=== PATIENT | female | born 1970 | race Caucasian/White ===

== ENCOUNTER 2021-10-26 09:31 | Outpatient (CLI) | payer OTHER, SELFPAY ==
--- NOTE | 2021-10-26 09:58 | ECHO_ITS ---
Patient Info Name: Shabana Plummer Age: 51 years : 1970 Gender: Female Ht: 66 in Wt: 225 lbs BSA: 2.22 m2 HR: 68 bpm BP: 141 / 97 mmHg Technical Quality: Fair Exam Date: 10/26/2021 10:25 AM Exam Location: [facility] Pulmonary Patient Status: Outpatient Admit Date: 10/26/2021 Staff Ordering Physician: Dennis Guevara DO Clinical Product Manager: Kimberley Anderson RDCS Attending Provider: Dennis Guevara DO Referring Physician: Ismael VERDE; Exam Type: CA echo doppler color flow Study Info Indications R06.00 - Dyspnea, unspecified Complete two-dimensional, color flow and Doppler transthoracic echocardiogram is performed. Summary 1. Complete two-dimensional, color flow and Doppler transthoracic echocardiogram is performed. 2. Left ventricular chamber dimension is normal. 3. Left ventricular systolic function is normal, estimated at 60-65%. 4. There is mildly increased left ventricular wall thickness. 5. The left ventricular diastolic function is grade I diastolic dysfunction. 6. E/e' 14 is mildly elevated. 7. Global longitudinal strain is mildly abnormal at -16.4%. 8. Left atrial chamber dimension is moderately enlarged. 9. The mitral valve has mildly calcified leaflets. 10. There is mild mitral valve regurgitation. 11. There is trace tricuspid valve regurgitation. 12. No pulmonary hypertension, estimated pulmonary arterial systolic pressure is 32 mmHg. Left Ventricle E/e' 14 is mildly elevated. Global longitudinal strain is mildly abnormal at -16.4%. Left ventricular chamber dimension is normal. Left ventricular systolic function is normal, estimated at 60-65%. There is mildly increased left ventricular wall thickness. The left ventricular diastolic function is grade I diastolic dysfunction. Right Ventricle Right ventricular chamber dimension is normal. Right ventricular systolic function is normal. Left Atria Left atrial chamber dimension is moderately enlarged. Right Atria Right atrial chamber dimension is normal. Aortic Valve The aortic valve is trileaflet. There is no aortic valve stenosis. There is no aortic valve regurgitation. Pulmonic Valve There is no pulmonic regurgitation. Mitral Valve The mitral valve has mildly calcified leaflets. There is no mitral valve stenosis. There is mild mitral valve regurgitation. Tricuspid Valve There is trace tricuspid valve regurgitation. No pulmonary hypertension, estimated pulmonary arterial systolic pressure is 32 mmHg. Pericardium/Pleural There is no pericardial effusion. Inferior Vena Cava Normal inferior vena cava with >50% collapse upon inspiration consistent with normal right atrial pressure, 5 mmHg. Aorta The aortic root size at the sinus of Valsalva is normal. Left Ventricular Outflow Tract Name Value Normal LVOT 2D LVOT Diameter 2.0 cm LVOT Doppler LVOT Peak Gradient 8 mmHg LVOT Mean Gradient 4 mmHg LVOT VTI 29 cm LVOT VTI/AV VTI Ratio 0.8 LVOT Stroke Volume 92 ml
== END 2021-10-26 09:32 | disposition home or self-care (01) ==
PROVIDERS: Visit Provider Internal Medicine Cardiovascular Disease
DX: R06.00 Dyspnea, unspecified (principal); I34.0 Nonrheumatic mitral (valve) insufficiency
CPT/HCPCS: 93306

== ENCOUNTER 2021-11-17 08:27 | Outpatient (CLI) | payer OTHER, SELFPAY ==
--- NOTE | 2021-11-17 08:31 | EST_ITS ---
Patient Info Name: Shabana Plummer Age: 51 years : 1970 Gender: Female Ht: 65 in Wt: 225 lbs BSA: 2.21 m2 HR: 69 bpm BP: 163 / 104 mmHg Heart Rhythm: Right Bundle Branch Block Exam Date: 11/17/2021 8:45 AM Exam Location: [facility] Stress Patient Status: Outpatient Admit Date: 11/17/2021 Staff Ordering Physician: Dennis Guevara DO Attending Provider: Dennis Guevara DO Exercise Technologist: Ale Sanz CT Exercise Physician: Dennis Guevara DO Exam Type: CA stress test treadmill Study Info Indications R07.9 - Chest pain, unspecified A regadenoson stress test was performed. Summary 1. 1. Negative Nura exercise stress test for ischemic ST changes by ECG criteria. 2. 2. Reduced functional capacity, achieving 8.9 METs of workload. 3. 3. Baseline hypertension with hypertensive response to exercise. 4. 4. Appropriate HR response to exercise. 5. 5. Appropriate HR recovery at 1 minute post exercise. 6. 6. No imaging with stress testing. 7. 7. Patient informed of the above results. Protocol: Nura Stress ECG Details Stage: REST Duration (min): 4 min : 14 sec Speed (mph): 0.0 Grade (%): 0 HR (bpm): 69 SBP (mmHg): 163 DBP (mmHg): 104 METS: --- Stage: REST Duration (min): 4 min : 40 sec Speed (mph): 0.0 Grade (%): 0 HR (bpm): 80 SBP (mmHg): 163 DBP (mmHg): 104 METS: --- Stage: STAGE 1 Duration (min): 1 min : 0 sec Speed (mph): 1.7 Grade (%): 10 HR (bpm): 103 SBP (mmHg): 163 DBP (mmHg): 104 METS: --- Stage: STAGE 1 Duration (min): 2 min : 0 sec Speed (mph): 1.7 Grade (%): 10 HR (bpm): 110 SBP (mmHg): 163 DBP (mmHg): 104 METS: --- Stage: STAGE 1 Duration (min): 3 min : 0 sec Speed (mph): 1.7 Grade (%): 10 HR (bpm): 112 SBP (mmHg): 209 DBP (mmHg): 93 METS: --- Stage: STAGE 2 Duration (min): 1 min : 0 sec Speed (mph): 2.5 Grade (%): 12 HR (bpm): 124 SBP (mmHg): 209 DBP (mmHg): 93 METS: --- Stage: STAGE 2 Duration (min): 2 min : 0 sec Speed (mph): 2.5 Grade (%): 12 HR (bpm): 130 SBP (mmHg): 209 DBP (mmHg): 93 METS: --- Stage: STAGE 2 Duration (min): 3 min : 0 sec Speed (mph): 2.5 Grade (%): 12 HR (bpm): 136 SBP (mmHg): 209 DBP (mmHg): 93 METS: --- Stage: STAGE 3 Duration (min): 1 min : 0 sec Speed (mph): 3.4 Grade (%): 14 HR (bpm): 156 SBP (mmHg): 231 DBP (mmHg): 115 METS: --- Stage: STAGE 3 Duration (min): 1 min : 0 sec Speed (mph): 3.4 Grade (%): 14 HR (bpm): 156 SBP (mmHg): 231 DBP (mmHg): 115 METS: --- Stage: RECOVERY Duration (min): 0 min : 59 sec Speed (mph): 0.0 Grade (%): 0 HR (bpm): 130 SBP (mmHg): 231 DBP (mmHg): 115 METS: --- Stage: RECOVERY Duration (min): 1 min : 59 sec Speed (mph): 0.0 Grade (%): 0 HR (bpm): 115
== END 2021-11-17 08:28 | disposition home or self-care (01) ==
LOC: ANHCARD 08:28
PROVIDERS: Visit Provider Internal Medicine Cardiovascular Disease
DX: R07.89 Other chest pain (principal); I45.10 Unspecified right bundle-branch block
CPT/HCPCS: 93017

== ENCOUNTER 2023-07-12 08:34 | Outpatient (CLI) | payer OTHER, SELFPAY ==
--- NOTE | 2023-08-05 12:24 | WPDHOMESLEEP ---
Sleep Study - Home Unattended Date of Study: 07/12/23 Ordering Provider: Dennis Guevara DO Interpreting Provider: Brandy Ch MD Home Sleep Study Type: Watch PAT Height: 1.68 m Weight: 108.862 kg Body Mass Index: 38.7 Neck Circumference (inches): 15.5 [place]: 13 Reason for Sleep Study Hypersomnolence Sleep History Shabana Plummer is a 53-year-old woman with hypertension who has excessive daytime sleepiness. There is a family history of sleep conditions in her sons, her aunt and uncle's. She wakes up during the night. She frequently awakens from sleep short of breath. She frequently wakes at night with heartburn, belching or coughing.??She constant snores and it is always loud enough that others complain. She frequently has trouble sleeping when she has a cold. She constantly wakes up gasping for breath during the night. She constantly has breathing problems at night. She rarely sweats excessively at night. She never notices her heart pounding or beating irregularly during the night. She frequently falls asleep during the day. She occasionally falls asleep involuntarily, rarely falls asleep while driving. She never experiences loss of muscle tone with strong emotion. She never feels paralyzed on waking or falling asleep. She never experiences vivid dreams upon waking or falling asleep. She never feels afraid of going to sleep. She never has nightmares. She never recalls her dreams. She rarely has thoughts racing through her mind. She occasionally feels sad or depressed. She rarely feels anxiety. She never notices parts of her body jerk. She never kicks during the night. She never feels crawling or aching feelings in her legs. She never feels leg pain at night. She never has morning jaw pain, and never grinds her teeth at night. She never feels bothered by pain during the day, is never awakened by pain during the night. She occasionally wakes up feeling stiff in the morning, never wakes feeling sore or achy in the morning. She never awakens with pain in her neck, spine, or joints. She has fatigue and headaches. She reports weight gain during the last year. Normal bedtime is 9:30 p.m., falling asleep pretty quickly waking 1-2 times at night to go to the bathroom. Her normal wake up time is 5:30 a.m.. On weekends, bedtime is 10:00 p.m.. Her wake time is 8:00 a.m.. She does not stay in bed long after waking. She estimates getting between 6 and 7 hours of sleep most nights. She does wake at night to provide help to a 4-year-old child. She takes naps in the afternoon or evening. A short nap lasting 10-15 minutes may be refreshing. She is usually drowsy for 2 hours after waking. She feels better in the morning compared to other times of day. Habits:??Tobacco: Never smoker Caffeine: None. Alcohol: None. Recreational substances: none [facility] Past Medical History Medical History (Updated 08/06/23 @ 10:02 by Brandy Ch MD) Asthma Chest pain Dyspnea Edema Essential hypertension MARILYN (obstructive sleep apnea) Tricuspid regurgitation Vertigo Surgical History Surgical History (Updated 08/06/23 @ 10:03 by Brandy Ch MD) S/P partial hysterectomy Status post tonsillectomy Social History Social History (Updated 07/02/23 @ 10:17 by Betty Alvarez CMA) Smoking status: Never smoker Alcohol intake: never Do You Feel Safe in your Home?: Yes Lack of Transportation: No Lack of Food: Never True Current Housing: I Have Housing Concerned About Future Housing: No Difficulty Paying Gas/Electric Bills: No Difficulty Paying for Meds: No Currently Unemployed: No Education: High School Diploma/GED Difficulty w/ Childcare or Family Care: No Medications Home Medications Medication Instructions Recorded Confirmed Type omega 7-aso-xwg-fish oil 1,000 mg 1 cap PO DAILY 11/27/22 07/02/23 History (120 mg-180 mg) capsule (Fish Oil) spironolactone 25 mg tablet 25 mg PO DAILY
[2023-08-06 10:06] VITALS: BMI 38.7
== END 2023-07-13 08:30 | disposition home or self-care (01) ==
LOC: ANHCSM 08:36
PROVIDERS: Visit Provider Internal Medicine Cardiovascular Disease
DX: G47.10 Hypersomnia, unspecified (principal); G47.33 Obstructive sleep apnea (adult) (pediatric)
CPT/HCPCS: 95800

== ENCOUNTER 2024-07-23 09:48 | Outpatient (CLI) | payer OTHER, SELFPAY ==
--- OUTSIDE RECORDS SUMMARY | 2024-07-23 11:56 | XMS_ITS | Patient Health Record ---
Author Organization [facility] Address [address] [place] [id number] Care Team Providers Care Planner Internship Name Role Phone Rachid Reyez DO Primary Care Provider Unavail able Judah Álvarez Unavailable [phone] REASON FOR REFERRAL No Information MEDICATIONS Medication SIG (Take, Route, Frequency, Duration) Notes Start Date End Date Status Ventolin HFA 108 (90 Base) MCG/ACT 2 puffs as needed Inhalation every 6 hrs Active Spironolactone 25 MG 1 tablet with food Orally Twice a day for 90 days Active Advair Diskus 250-50 MCG/DOSE 1 puff Inhalation Twice a day Active Metoprolol Succinate ER 50 MG 1 tablet Orally Once a day for 30 day(s) Active SOCIAL HISTORY Tobacco Use: Social History Observation Description Date Details (start date - stop date) Never Smoker NA - NA Sex Assigned At : Social History Observation Description Sex Assigned At Unknown Tobacco Use/Smoking Question Answer Notes You are a nonsmoker PROBLEMS Problem Type ICD Code Onset Dates Problem Status W/U Status Risk SNOMED Code Notes Problem Hypokalemia (E87.6) Active confirmed Hypokalemia (89010218) Problem Essential (primary) hypertension (I10) Active confirmed Essential hypertension (54138360) PLAN OF TREATMENT Future Test Test Name Order Date RENAL PANEL 06/09/2020 Insurance Providers Payer Name Payer Address Payer Phone Subscriber Number Group Number Insured Name Patient Relationship to Insured Coverage Start Date Coverage End Date [facility] [employer] [address] [address] [place] [address] [phone] [id number] Shabana Whipple Self - patient is the insured MEDICAL (GENERAL) HISTORY Medical History History ICD Code Hypokalemia Hypertension Carpal Tunnel Syndrome Chest Pain GERD Sinusitis [id number] U/S--No sonographic evide nce of renal pathology Surgical History Surgery Date(Month/Year) Hysterectomy Tubal Ligation Hospitalization History Reason Date(Month/Year) For Above Surgery
--- NOTE | 2024-08-14 12:00 | WPDSLEEPSTUD ---
Sleep Study Date of Study: 07/23/24 Ordering Provider: Charles Bhatia APRN Interpreting Physician: Brandy Ch MD Sleep Study Type: Polysomnogram Height: 1.68 m Weight: 111.13 kg Body Mass Index: 39.5 Neck Circumference (inches): 16.25 [place]: 5 Reason for Sleep Study Known obstructive sleep apnea, previously tested 07/12/2023, now presents for a polysomnogram with a mandibular advancement device titration Sleep History Shabana Plummer is a 54-year-old woman with hypertension who has excessive daytime sleepiness. There is a family history of sleep conditions in her sons, her aunt and uncle's. She wakes up during the night. She frequently awakens from sleep short of breath. She frequently wakes at night with heartburn, belching or coughing.??She constant snores and it is always loud enough that others complain. She frequently has trouble sleeping when she has a cold. She constantly wakes up gasping for breath during the night. She constantly has breathing problems at night. She rarely sweats excessively at night. She never notices her heart pounding or beating irregularly during the night. She frequently falls asleep during the day. She occasionally falls asleep involuntarily, rarely falls asleep while driving. She never experiences loss of muscle tone with strong emotion. She never feels paralyzed on waking or falling asleep. She never experiences vivid dreams upon waking or falling asleep. She never feels afraid of going to sleep. She never has nightmares. She never recalls her dreams. She rarely has thoughts racing through her mind. She occasionally feels sad or depressed. She rarely feels anxiety. She never notices parts of her body jerk. She never kicks during the night. She never feels crawling or aching feelings in her legs. She never feels leg pain at night. She never has morning jaw pain, and never grinds her teeth at night. She never feels bothered by pain during the day, is never awakened by pain during the night. She occasionally wakes up feeling stiff in the morning, never wakes feeling sore or achy in the morning. She never awakens with pain in her neck, spine, or joints. She has fatigue and headaches. She reports weight gain during the last year. Normal bedtime is 9:30 p.m., falling asleep pretty quickly waking 1-2 times at night to go to the bathroom. Her normal wake up time is 5:30 a.m.. On weekends, bedtime is 10:00 p.m.. Her wake time is 8:00 a.m.. She does not stay in bed long after waking. She estimates getting between 6 and 7 hours of sleep most nights. She does wake at night to provide help to a 4-year-old child. She takes naps in the afternoon or evening. A short nap lasting 10-15 minutes may be refreshing. She is usually drowsy for 2 hours after waking. She feels better in the morning compared to other times of day. Habits:??Tobacco: Never smoker Caffeine: None. Alcohol: None. Recreational substances: none PMFSH Past Medical History Medical History Asthma MARILYN (obstructive sleep apnea) Dyspnea Vertigo Edema Chest pain Tricuspid regurgitation Essential hypertension Surgical History Surgical History Status post tonsillectomy S/P partial hysterectomy Social History Social History Smoking status: Never smoker Alcohol intake: never Do You Feel Safe in your Home?: Yes Lack of Transportation: No Lack of Food: Never True Current Housing: I Have Housing Concerned About Future Housing: No Difficulty Paying Gas/Electric Bills: No Difficulty Paying for Meds: No Currently Unemployed: No Education: High School Diploma/GED Difficulty w/ Childcare or Family Care: No Medications Home Medications ?Medication ?Instructions ?Recorded ?Confirmed ?Type omega 1-npw-vsk-fish oil 1,000 mg 1 cap PO DAILY 11/27/22 06/09/24 History (120 mg-180 mg) capsule (Fish Oil) pravastatin 10 mg tablet See Rx Instructions .Route 07/20/23 06/09/24 Rx .COMPLEX #90 tabs spironolactone 50 mg tablet 50 mg PO DAILY #90 tabs 08/16/23 06/09/24 Rx albuterol sulfate 90 mcg/actuation 1 puff inhalation Q4H PRN 09/07/23 06/09/24 History aerosol inhaler fluticasone 250 mcg-salmeterol 50 1 inh inhalation BID 09/07/23 06/09/24 History mcg/dose blistr powdr for inhalation (Advair Diskus) metoprolol succinate 50 mg 50 mg PO DAILY 03/07/24 06/09/24 History tablet,extended release 24 hr Assessment and Plan Assessment and Plan (1) Obstructive sleep apnea: Code(s): G47.33 - Obstructive sleep apnea (adult) (pediatric) Status: Acute Assessment and Plan: This basic nocturnal polysomnogram 07/23/2024 with titration of a MAD, mandibular advancement device, shows Data The data obtained during this sleep study is adequate for interpretation. Certification This sleep study has been reviewed by a board certified sleep medicine physician.
[2024-08-14 12:02] VITALS: BMI 39.5
== END 2024-07-24 06:34 | disposition home or self-care (01) ==
PROVIDERS: Visit Provider Nurse Practitioner Family
DX: G47.33 Obstructive sleep apnea (adult) (pediatric) (principal)
CPT/HCPCS: 95810

== ENCOUNTER 2024-09-11 09:52 | Outpatient (CLI) | payer OTHER, SELFPAY ==
--- NOTE | ~2024-09-11 | XR_ITS ---
Clinical Indication: Idiopathic sleep obstruction PA and lateral views of the chest: Comparison: None Findings: The lungs are clear, without evidence of focal consolidation or pleural effusion. Cardiome diastinal silhouette is within normal limits. Bones and soft tissues are unremarkable. Impression: Normal chest. Reviewed, dictated and finalized at location . Impression: Normal chest.
--- OUTSIDE RECORDS SUMMARY | 2024-09-11 10:10 | XMS_ITS | Patient Health Record ---
Author Organization [facility] Address [address] [place] [id number] Care Team Providers Care Partition Making Machine Operator Name Role Phone Rachid Reyez DO Primary Care Provider Unavail able Judah Álvarez Unavailable [phone] REASON FOR REFERRAL No Information MEDICATIONS Medication [...] Notes Problem Hypokalemia (E87.6) Active confirmed Hypokalemia (45354354) Problem Essential (primary) hypertension (I10) Active confirmed Essential hypertension (22678642) PLAN OF TREATMENT Future Test Test Name Order Date RENAL PANEL 06/09/2020 Insurance Providers Payer Name Payer Address Payer Phone Subscriber Number Group Number Insured Name Patient Relationship to Insured Coverage Start Date Coverage End Date [facility] [employer] [address] [address] [place] [address] [phone] [id number] Shabana Whipple Self - patient is the insured MEDICAL (GENERAL) HISTORY Medical History History ICD Code Hypokalemia Hypertension Carpal Tunnel Syndrome Chest Pain GERD Sinusitis [id number] U/S--No sonographic evide nce of renal pathology Surgical History Surgery Date(Month/Year) Hysterectomy Tubal Ligation Hospitalization History Reason Date(Month/Year) For Above Surgery
--- NOTE | 2024-09-11 14:14 | WPDPFTINT ---
PFT Procedure Performed PFT Procedure Performed Spirometry with Pre/Post Bronchodilator Plethysmography (Lung Vol) Diffusing Cap (DLCO) Flow Vol Loop PFT Interpretation This is a pulmonary function test with pre and post-bronchodilator spirometry, plethysmography and diffusing capacity. The test was performed and results interpreted in accordance with the 2019 and 2005 ATS/ERS Task Force guidelines respectively using the Global Lung Function Initiative-2012 reference equations. Patient demonstrated good effort and cooperation. Reproducibility criteria were met. The quality of the pre bronchodilator spirometry maneuver was Grade A and post bronchodilator spirometry maneuver was Grade A. Findings: Spirometry: The contour the inspiratory and expiratory flow tracing are normal. The pre bronchodilator FVC is 3.23 L, 91% predicted. The pre bronchodilator FEV1 is 2.36 L, 85% predicted. The pre bronchodilator FEV1: FVC ratio 73%. The post bronchodilator FVC is 3.10 L, representing a 4% decrease. The post bronchodilator FEV1 is 2.39 L, representing a 1% increase. The post bronchodilator FEV1: FVC ratio 77%. Plethysmography: The total lung capacity is 4.53 L, 84% predicted. The functional residual capacity is 1.71 L, 56% predicted. The residual volume is 1.30 L, 65% predicted. Diffusing capacity: The diffusing capacity unadjusted for hemoglobin and carboxyhemoglobin is 26.1, 114% predicted. The diffusing capacity adjusted for alveolar volume is 5.96, 135% predicted. Impression: The spirometry is normal without evidence of an obstructive abnormality. There is no significant improvement after inhaling a single dose of albuterol. The total lung capacity and residual volume are normal with a decreased functional residual capacity. This is an abnormal but nonspecific lung volume pattern. The diffusing capacity is normal. There are no prior studies for comparison
== END 2024-09-11 09:53 | disposition home or self-care (01) ==
PROVIDERS: Visit Provider Nurse Practitioner Family
DX: G47.34 Idiopathic sleep related nonobstructive alveolar hypoventilation (principal); R06.00 Dyspnea, unspecified; J45.909 Unspecified asthma, uncomplicated
CPT/HCPCS: 71046; 94060; 94726; 94729